=== PATIENT | male | born 1940 | race Hispanic/Latino ===

== ENCOUNTER → 2019-09-07 | Outpatient (CLI) | payer OTHER | END | disposition home or self-care (01) | LOC: SHCH 12:40 | PROVIDERS: ATTEND Internal Medicine Cardiovascular Disease | DX: I34.0 Nonrheumatic mitral (valve) insufficiency (principal); I25.2 Old myocardial infarction | CPT/HCPCS: 93306 ==

== ENCOUNTER → 2025-03-13 | Outpatient (CLI) | payer OTHER ==
--- NOTE | 2025-03-13 17:16 | HMCIMG ---
FOOT COMP 3+VWS LT HISTORY: Left foot pain COMPARISON: None TECHNIQUE: 3 images of the left foot were obtained. FINDINGS: Bone density seen adjacent to the cuboid. This may be related to old trauma. Calcaneal spur is seen. There is no acute displaced fracture or dislocation. Degenerative changes are seen. IMPRESSION: 1. Findings as described above.
== END | disposition home or self-care (01) ==
LOC: RAH 11:44
PROVIDERS: ATTEND Internal Medicine
DX: M19.072 Primary osteoarthritis, left ankle and foot (principal); M77.32 Calcaneal spur, left foot; M85.9 Disorder of bone density and structure, unspecified; M79.672 Pain in left foot
CPT/HCPCS: 73630